=== PATIENT | female | born 1955 | race Caucasian/White ===

== ENCOUNTER 2017-05-03 09:58 | Emergency (ER) | payer OTHER, MEDICARE ==
[~2017-05-03] VITALS: Ht 152.4 cm; Wt 52.2 kg
[~2017-05-03 09:58] MED LIST: BUPROPION HYDR150 M5 PO; BUPROPION XL300 M1 PO; CELEBREX200 MG PO; EXCEDRIN MIGRAI1 TAB PO; FLEXERIL10 MG PO; KEFLEX500 MG PO; LEVOTHYROXIN0.125 M1 PO; LEVOTHYROXINE112 MCG PO; LINZESS145 MCG PO; LISINOPRIL20 MG PO; LITHIUM CARBON300 M4 PO; METHYLPHENIDATE10 M4 PO; MOTRIN400 MG PO; NEXIUM40 M1 PO; PREDNICOT10 MG PO; VENLAFAXINE HY150 MG PO; VICODIN 300 MG-1 TAB PO; ZOLPIDEM TARTRA10 MG PO; ZOLPIDEM TARTRAT5 M1 PO
--- NOTE | 2017-05-03 10:01 | ED ANIMAL BITE/WOUND CHECK ---
History of Present Illness General Chief Complaint: Suture Removal/Wound Recheck Stated Complaint: SUTURE REMOVAL Source: patient Exam Limitations: no limitations Vital Signs & Intake/Output Vital Signs & Intake/Output Vital Signs Date Time Temp Pulse Resp B/P B/P Pulse O2 O2 Flow FiO2 Mean Ox Delivery Rate 05/03 1005 97.0 92 18 148/84 97 Room Air Room Air ED Intake and Output 05/04 0000 05/03 1200 Intake Total Output Total Balance Patient 115 lb Weight Weight Reported by Patient Measurement Method Allergies Coded Allergies: celecoxib (From CELEBREX) (Intermediate, HIVES 05/24/15) metronidazole (UNKNOWN 05/24/15) mold (UNKNOWN 05/24/15) Reconcile Medications Bupropion HCl (Bupropion XL) 300 MG TAB.ER.24H 1 TAB PO QAM MENTAL HEALTH ( Reported) Esomeprazole (Nexium) 40 MG CAPSULE.DR 1 CAP PO DAILY PRN GI (Reported) Levothyroxine Sodium 112 MCG TABLET 1 TAB PO DAILY THYROID (Reported) [place] Carbonate 300 MG CAPSULE 1 CAP PO QHS MENTAL HEALTH (Reported) Zolpidem Tartrate 5 MG TABLET 1 TAB PO QPM PRN SLEEP (Reported) Triage Nurses Notes Reviewed? yes Onset: Last week Duration: week(s): (1) Timing: remote history Injury Environment: home Is Injury an Animal Bite? No Severity: mild No Modifying Factors: none HPI: Patient is a 62-year-old female that was seen and evaluated here about one week ago for a fall, she had sutures placed in the right eyebrow area. She reports has been healing up well. Denies any headaches. No visual changes. Denies numbness or tingling. She is here for suture removal. (Daphne Grove) Past History Travel History Traveled to [place] past 21 day No Medical History Any Pertinent Medical History? see below for history Neurological: NONE EENT: NONE Cardiovascular: hypertension Respiratory: NONE Gastrointestinal: NONE Hepatic: NONE Renal: NONE Musculoskeletal: NONE Psychiatric: anxiety, depression Endocrine: hypothyroidism Other Medical Hx: Osteoporosis History of MRSA: Yes Surgical History Surgical History: non-contributory Psychosocial History Who do you live with Friend Services at Home None What is your primary language Yakut Family History Hx Contributory? No (Daphne Grove) Review of Systems Review of Systems Constitutional: Reports: no symptoms. Comments Review of systems: See HPI, All other systems negative. Constitutional, no chills fever or weight loss HEENT: No visual changes no sore throat no congestion Cardiovascular: No chest pain Skin, no jaundice no rashes Respiratory: No dyspnea cough sputum GI: No nausea no vomiting Muscle skeletal: no back pain, no neck pain, Neurologic: No numbness no confusion, no headaches Psych: No stress anxiety Immunology: No splenectomy or history of AIDS (Daphne Grove) Physical Exam Physical Exam General Appearance: well developed/nourished, no apparent distress, alert, awake , comfortable Comments: Well-developed well-nourished person in no acute distress HEENT: Pupils equally round and reactive to light and accommodation. Nose is atraumatic. Neck: Normal inspection Respiratory: No respiratory distress. Extremity: No edema Neuro: Alert oriented x3, motor sensory normal Skin: Well-healed laceration approximately 3 cm noted through the right eyebrow. No surrounding erythema or edema. [address] Psych: Mood and affect is normal, memory and judgment is normal. (Daphne Grove) Progress Differential Diagnosis: laceration, wound check, suture removal Plan of Care: 5 sutures removed without difficulty. Patient tolerated procedure well. (Daphne Grove) Departure Departure Disposition: HOME OR SELF CARE Condition: Stable Clinical Impression Primary Impression: Visit for suture removal Referrals: Jose Miguel GARCÍA,Catrachito Diaz (PCP/Family) Additional Instructions: Follow-up with your primary care physician in the next 5-7 days, return for worsening symptoms or concerns. Keep area clean and dry. Wash daily with soap and water. Return for worsening symptoms or concerns. Departure Forms: Customer Survey General Discharge Information (Daphne Grove) PA/BRAKE PRESS OPERATOR Co-Sign Statement Statement: ED Attending supervision documentation- [] I saw and evaluated the patient. I have also reviewed all the pertinent lab results and diagnostic results. I agree with the findings and the plan of care as documented in the PA's/BRAKE PRESS OPERATOR's documentation. [X] I have reviewed the ED Record and agree with the PA's/BRAKE PRESS OPERATOR's documentation. [] Additions or exceptions (if any) to the PAs/BRAKE PRESS OPERATOR's note and plan are summarized below: [] (Cait GARCÍA,Muriel)
[2017-05-03 10:05] VITALS: BP 148/84
== END 2017-05-03 10:11 ==
LOC: ERH 09:58
DX: Z48.02 Encounter for removal of sutures (principal)